=== PATIENT | male | born 1950 | race Caucasian/White ===

== ENCOUNTER 2018-07-15 18:19 | Inpatient (IN) | payer MEDICARE, MEDICAID, OTHER ==
[2018-07-15 18:40] LABS: ADD MAN DIFF? NO
[2018-07-15 18:43] LABS: BASOPHILS % 0.4 % (0.0-2.0); EOSINOPHILS # 0.3 10^3/ul (0.0-0.5); EOSINOPHILS % 3.5 % (0.0-7.0); HEMATOCRIT 45.4 % (42.0-52.0); HEMOGLOBIN 15.2 g/dl (14.0-18.0); LYMPHOCYTES # 3.5 10^3/ul (0.8-2.9); LYMPHOCYTES % 47.6 % (15.0-51.0); MEAN CORPUSCULAR HEMOGLOBIN 27.3 pg (29.0-33.0); MEAN CORPUSCULAR HGB CONC 33.5 g/dl (32.0-37.0); MEAN CORPUSCULAR VOLUME 81.7 fl (82.0-101.0); MEAN PLATELET VOLUME 10.3 fl (7.4-10.4); MONOCYTE # 0.5 10^3/ul (0.3-0.9); MONOCYTES % 6.2 % (0.0-11.0); NEUTROPHIL # 3.1 10^3/ul (1.6-7.5); PLATELET COUNT 299 10^3/UL (140-415); RED BLOOD COUNT 5.56 10^6/ul (4.70-6.10)
[2018-07-15 18:43] LABS: WHITE BLOOD COUNT 7.4 10^3/ul (4.8-10.8)
[2018-07-15 18:59] LABS: ALANINE AMINOTRANSFERASE 21 IU/L (13-69); ALBUMIN/GLOBULIN RATIO 1.17; ALKALINE PHOSPHATASE 125 IU/L (42-121); ANION GAP 11 (5-13); ASPARTATE AMINO TRANSFERASE 33 IU/L (15-46); BILIRUBIN,INDIRECT 0.7 mg/dl (0-1.1); BILIRUBIN,TOTAL 0.7 mg/dl (0.2-1.3); BLOOD UREA NITROGEN 15 mg/dl (7-20); CALCIUM 9.2 mg/dl (8.4-10.2); CARBON DIOXIDE 33 mmol/L (21-31); CHLORIDE 95 mmol/L (97-110); CREATININE 0.75 mg/dl (0.61-1.24); Estimated GFR > 60 mL/min (>60); GLUCOSE 122 mg/dl (70-220); LIPASE 39 U/L (23-300); SODIUM 139 mmol/L (135-144); TOTAL PROTEIN 7.4 g/dl (6.1-8.1)
[2018-07-15 19:07] LABS: POTASSIUM 2.7 mmol/L (3.5-5.1)
[2018-07-15 19:10] LABS: TROPONIN-I 0.023 ng/ml (0.000-0.120)
[2018-07-15] MEDS ORDERED: ONDANSETRON 4 MG INJ IV ×2 (20:30→23:00)
[2018-07-15] MEDS ORDERED: ACETAMINOPHEN 325 MG TAB PO (20:30)
[2018-07-15] MEDS: AZITHROMYCIN 500MG/NS (PMX) 250 ML IV (20:41)
[2018-07-15] MEDS ORDERED: NACL 0.9% 3 ML SYG IV (23:00)
[2018-07-15] MEDS ORDERED: ALBUTEROL/IPRATROPIUM (NEB) 3 ML AMP HHN (23:00)
[2018-07-15] MEDS ORDERED: ONDANSETRON 4 MG TAB PO (23:00)
[2018-07-15] MEDS: POTASSIUM BICARBONATE 25 MEQ TAB PEG (23:05)
[2018-07-15] MEDS: CEFTRIAXONE 1 GM/50 ML (PMX) 50 ML IVPB (23:05)
[2018-07-16] MEDS: ACETAMINOPHEN 325 MG TAB PO ×3 (00:24→17:46)
[2018-07-16] MEDS: LORAZEPAM 1 MG TAB PO ×2 (00:24→16:17)
[2018-07-16] MEDS: GUAIFENESIN/CODEINE 5ML CUP PO (04:57)
[2018-07-16] MEDS: PANTOPRAZOLE 40 MG INJ IV (05:31)
[2018-07-16 05:46] LABS: ADD MAN DIFF? NO
[2018-07-16 05:51] LABS: BASOPHILS % 0.4 % (0.0-2.0); EOSINOPHILS # 0.3 10^3/ul (0.0-0.5); EOSINOPHILS % 2.6 % (0.0-7.0); HEMATOCRIT 44.1 % (42.0-52.0); LYMPHOCYTES # 3.4 10^3/ul (0.8-2.9); MEAN CORPUSCULAR HEMOGLOBIN 27.4 pg (29.0-33.0); MEAN CORPUSCULAR VOLUME 80.6 fl (82.0-101.0); MEAN PLATELET VOLUME 10.4 fl (7.4-10.4); MONOCYTE # 0.6 10^3/ul (0.3-0.9); MONOCYTES % 5.8 % (0.0-11.0); NEUTROPHIL # 5.7 10^3/ul (1.6-7.5); NEUTROPHILS % 56.9 % (39.0-77.0); PLATELET COUNT 308 10^3/UL (140-415); RED BLOOD COUNT 5.47 10^6/ul (4.70-6.10); RED CELL DISTRIBUTION WIDTH 14.7 % (11.5-14.5)
[2018-07-16 05:51] LABS: WHITE BLOOD COUNT 10.1 10^3/ul (4.8-10.8)
[2018-07-16] MEDS ORDERED: PANTOPRAZOLE (EC) 40 MG TAB PO (06:00)
[2018-07-16 06:07] LABS: HEMOGLOBIN A1C 5.4 % (0-5.9)
[2018-07-16 06:07] LABS: ALANINE AMINOTRANSFERASE 24 IU/L (13-69); ALBUMIN/GLOBULIN RATIO 1.17; ALKALINE PHOSPHATASE 126 IU/L (42-121); ANION GAP 12 (5-13); ASPARTATE AMINO TRANSFERASE 32 IU/L (15-46); BILIRUBIN,INDIRECT 0.6 mg/dl (0-1.1); BILIRUBIN,TOTAL 0.6 mg/dl (0.2-1.3); BLOOD UREA NITROGEN 12 mg/dl (7-20); CALCIUM 9.4 mg/dl (8.4-10.2); CARBON DIOXIDE 32 mmol/L (21-31); CHLORIDE 96 mmol/L (97-110); CHOL/HDL RATIO 2.5 RATIO; CHOLESTEROL 100 mg/dl (100-200); CREATININE 0.65 mg/dl (0.61-1.24); Estimated GFR > 60 mL/min (>60); GLUCOSE 111 mg/dl (70-220); HDL CHOLESTEROL 40 mg/dl (30-78); LDL CHOLESTEROL,CALCULATED 46 mg/dl; MAGNESIUM 1.8 mg/dl (1.7-2.5); PHOSPHORUS 2.5 mg/dl (2.5-4.9); SODIUM 140 mmol/L (135-144); TOTAL PROTEIN 7.4 g/dl (6.1-8.1); TRIGLYCERIDES 69 mg/dl (0-149)
[2018-07-16 06:17] LABS: POTASSIUM 2.6 mmol/L (3.5-5.1)
[2018-07-16] MEDS: CLOPIDOGREL 75 MG TAB PO (08:57)
[2018-07-16] MEDS: DOCUSATE SODIUM 100 MG CAP PO (08:57)
[2018-07-16] MEDS: CEFTRIAXONE 1 GM/50 ML (PMX) 50 ML IVPB ×2 (08:57→21:26)
[2018-07-16] MEDS: ASPIRIN (EC) 81 MG TAB PO (08:57)
[2018-07-16] MEDS: SERTRALINE 50 MG TAB PO (08:57)
[2018-07-16] MEDS: AZITHROMYCIN 500MG/NS (PMX) 250 ML IVPB (09:46)
[2018-07-16] MEDS: POTASSIUM CHLORIDE 100 ML IVPB ×3 (11:04→16:02)
[2018-07-16 19:10] LABS: POTASSIUM 3.5 mmol/L (3.5-5.1)
[2018-07-16] MEDS ORDERED: VANCOMYCIN IV PER PHARMACY XX (21:00)
[2018-07-16] MEDS: ATORVASTATIN 40 MG TAB PO (21:25)
[2018-07-16 22:08] LABS: POTASSIUM 3.2 mmol/L (3.5-5.1)
[2018-07-16] MEDS: VANCOMYCIN HCL 1.5 GM in SOD CHLORIDE 0.9% 250 ML IVPB (23:18)
[2018-07-17] MEDS: ACETAMINOPHEN 325 MG TAB PO (02:02)
[2018-07-17] MEDS: PANTOPRAZOLE 40 MG INJ IV (05:24)
[2018-07-17 05:54] LABS: ADD MAN DIFF? NO
[2018-07-17 06:00] LABS: BASOPHILS % 0.5 % (0.0-2.0); EOSINOPHILS # 0.2 10^3/ul (0.0-0.5); EOSINOPHILS % 3.1 % (0.0-7.0); HEMATOCRIT 40.3 % (42.0-52.0); HEMOGLOBIN 13.8 g/dl (14.0-18.0); LYMPHOCYTES # 2.5 10^3/ul (0.8-2.9); LYMPHOCYTES % 40.1 % (15.0-51.0); MEAN CORPUSCULAR HEMOGLOBIN 27.7 pg (29.0-33.0); MEAN CORPUSCULAR HGB CONC 34.2 g/dl (32.0-37.0); MEAN CORPUSCULAR VOLUME 80.8 fl (82.0-101.0); MEAN PLATELET VOLUME 10.3 fl (7.4-10.4); MONOCYTE # 0.4 10^3/ul (0.3-0.9); MONOCYTES % 6.7 % (0.0-11.0); NEUTROPHILS % 49.3 % (39.0-77.0); PLATELET COUNT 270 10^3/UL (140-415); RED BLOOD COUNT 4.99 10^6/ul (4.70-6.10)
[2018-07-17 06:00] LABS: WHITE BLOOD COUNT 6.2 10^3/ul (4.8-10.8)
[2018-07-17 06:17] LABS: INR 0.98; PROTIME 13.1 Sec (11.9-14.9)
[2018-07-17 06:19] LABS: PHOSPHORUS 2.3 mg/dl (2.5-4.9)
[2018-07-17 06:19] LABS: MAGNESIUM 1.8 mg/dl (1.7-2.5)
[2018-07-17 06:24] LABS: ALANINE AMINOTRANSFERASE 30 IU/L (13-69); ALBUMIN 3.6 g/dl (3.3-4.9); ALBUMIN/GLOBULIN RATIO 1.16; ALKALINE PHOSPHATASE 107 IU/L (42-121); ANION GAP 11 (5-13); ASPARTATE AMINO TRANSFERASE 32 IU/L (15-46); BILIRUBIN,INDIRECT 0.6 mg/dl (0-1.1); BILIRUBIN,TOTAL 0.6 mg/dl (0.2-1.3); BLOOD UREA NITROGEN 8 mg/dl (7-20); CALCIUM 9.1 mg/dl (8.4-10.2); CARBON DIOXIDE 28 mmol/L (21-31); CHLORIDE 102 mmol/L (97-110); CREATININE 0.58 mg/dl (0.61-1.24); Estimated GFR > 60 mL/min (>60); GLUCOSE 94 mg/dl (70-220); SODIUM 141 mmol/L (135-144); TOTAL PROTEIN 6.7 g/dl (6.1-8.1)
[2018-07-17 06:29] LABS: POTASSIUM 2.9 mmol/L (3.5-5.1)
[2018-07-17 06:54] LABS: THYROID STIMULATING HORMONE 0.947 MIU/L (0.465-4.680)
[2018-07-17] MEDS: CEFTRIAXONE 1 GM/50 ML (PMX) 50 ML IVPB ×2 (09:25→21:30)
[2018-07-17] MEDS: POTASSIUM CHLORIDE 100 ML IVPB ×2 (09:25→10:56)
[2018-07-17] MEDS: CLOPIDOGREL 75 MG TAB PO (09:25)
[2018-07-17] MEDS: LACTOBACILLUS RHAMNOSUS CAP PO ×2 (09:25→21:30)
[2018-07-17] MEDS: DOCUSATE SODIUM 100 MG CAP PO (09:26)
[2018-07-17] MEDS: SERTRALINE 50 MG TAB PO (09:26)
[2018-07-17] MEDS: ASPIRIN (EC) 81 MG TAB PO (09:26)
[2018-07-17] MEDS: VANCOMYCIN 1 GM 250 ML IVPB ×2 (11:00→23:23)
[2018-07-17] MEDS: MUPIROCIN 2% 22 GM OINT TOP (21:30)
[2018-07-17] MEDS: ATORVASTATIN 40 MG TAB PO (21:30)
[2018-07-17] MEDS: LORAZEPAM 1 MG TAB PO (21:40)
[2018-07-18 05:52] LABS: ADD MAN DIFF? NO
[2018-07-18 05:56] LABS: BASOPHILS % 0.4 % (0.0-2.0); EOSINOPHILS # 0.2 10^3/ul (0.0-0.5); EOSINOPHILS % 2.5 % (0.0-7.0); HEMATOCRIT 41.8 % (42.0-52.0); HEMOGLOBIN 14.2 g/dl (14.0-18.0); LYMPHOCYTES # 3.4 10^3/ul (0.8-2.9); LYMPHOCYTES % 44.2 % (15.0-51.0); MEAN CORPUSCULAR HEMOGLOBIN 27.4 pg (29.0-33.0); MEAN CORPUSCULAR VOLUME 80.5 fl (82.0-101.0); MEAN PLATELET VOLUME 10.3 fl (7.4-10.4); MONOCYTE # 0.5 10^3/ul (0.3-0.9); MONOCYTES % 6.8 % (0.0-11.0); NEUTROPHIL # 3.5 10^3/ul (1.6-7.5); PLATELET COUNT 283 10^3/UL (140-415); RED BLOOD COUNT 5.19 10^6/ul (4.70-6.10); RED CELL DISTRIBUTION WIDTH 15.3 % (11.5-14.5)
[2018-07-18 05:56] LABS: WHITE BLOOD COUNT 7.6 10^3/ul (4.8-10.8)
[2018-07-18 06:27] LABS: MAGNESIUM 1.7 mg/dl (1.7-2.5)
[2018-07-18 06:27] LABS: PHOSPHORUS 2.5 mg/dl (2.5-4.9)
[2018-07-18 06:44] LABS: ANION GAP 10 (5-13); BLOOD UREA NITROGEN 10 mg/dl (7-20); CALCIUM 9.2 mg/dl (8.4-10.2); CARBON DIOXIDE 25 mmol/L (21-31); CHLORIDE 105 mmol/L (97-110); CREATININE 0.52 mg/dl (0.61-1.24); Estimated GFR > 60 mL/min (>60); GLUCOSE 89 mg/dl (70-220); POTASSIUM 3.2 mmol/L (3.5-5.1); SODIUM 140 mmol/L (135-144)
[2018-07-18] MEDS: LANSOPRAZOLE 30 MG CAP PO (06:49)
[2018-07-18] MEDS: CEFTRIAXONE 1 GM/50 ML (PMX) 50 ML IVPB ×2 (08:21→20:52)
[2018-07-18] MEDS: SERTRALINE 50 MG TAB PO (08:21)
[2018-07-18] MEDS: CLOPIDOGREL 75 MG TAB PO (08:21)
[2018-07-18] MEDS: LACTOBACILLUS RHAMNOSUS CAP PO ×2 (08:21→20:53)
[2018-07-18] MEDS: DOCUSATE SODIUM 100 MG CAP PO (08:21)
[2018-07-18] MEDS: ASPIRIN (EC) 81 MG TAB PO (08:21)
[2018-07-18] MEDS: MUPIROCIN 2% 22 GM OINT TOP ×2 (08:22→20:53)
[2018-07-18 11:22] LABS: VANCOMYCIN,TROUGH 6.6 ug/ml (10.0-20.0)
[2018-07-18] MEDS: VANCOMYCIN 1 GM 250 ML IVPB (11:42)
[2018-07-18] MEDS: ACETAMINOPHEN 325 MG TAB PO ×2 (15:22→20:52)
[2018-07-18] MEDS: LORAZEPAM 1 MG TAB PO ×2 (15:25→20:53)
[2018-07-18] MEDS: POTASSIUM CHLORIDE 20 MEQ POWDER FOR ORAL SOLN GTB (17:13)
[2018-07-18] MEDS: 1/2 NS + KCL 20 MEQ 1,000 ML IV (17:13)
[2018-07-18] MEDS: ATORVASTATIN 40 MG TAB PO (20:53)
[2018-07-18] MEDS: VANCOMYCIN HCL 1.5 GM in SOD CHLORIDE 0.9% 250 ML IVPB (21:57)
[2018-07-19 05:40] LABS: ADD MAN DIFF? NO
[2018-07-19] MEDS: LANSOPRAZOLE 30 MG CAP PO (05:50)
[2018-07-19 05:53] LABS: WHITE BLOOD COUNT 7.7 10^3/ul (4.8-10.8)
[2018-07-19 05:53] LABS: BASOPHILS % 0.4 % (0.0-2.0); EOSINOPHILS # 0.1 10^3/ul (0.0-0.5); EOSINOPHILS % 1.8 % (0.0-7.0); LYMPHOCYTES # 2.6 10^3/ul (0.8-2.9); LYMPHOCYTES % 33.9 % (15.0-51.0); MEAN CORPUSCULAR HEMOGLOBIN 27.5 pg (29.0-33.0); MEAN CORPUSCULAR HGB CONC 34.1 g/dl (32.0-37.0); MEAN CORPUSCULAR VOLUME 80.6 fl (82.0-101.0); MEAN PLATELET VOLUME 10.1 fl (7.4-10.4); MONOCYTE # 0.6 10^3/ul (0.3-0.9); MONOCYTES % 7.1 % (0.0-11.0); NEUTROPHIL # 4.4 10^3/ul (1.6-7.5); NEUTROPHILS % 56.5 % (39.0-77.0); PLATELET COUNT 280 10^3/UL (140-415); RED BLOOD COUNT 5.09 10^6/ul (4.70-6.10); RED CELL DISTRIBUTION WIDTH 15.1 % (11.5-14.5)
[2018-07-19 06:02] LABS: MAGNESIUM 1.6 mg/dl (1.7-2.5)
[2018-07-19 06:02] LABS: PHOSPHORUS 2.2 mg/dl (2.5-4.9)
[2018-07-19 06:05] LABS: ANION GAP 9 (5-13); BLOOD UREA NITROGEN 5 mg/dl (7-20); CALCIUM 9.4 mg/dl (8.4-10.2); CARBON DIOXIDE 23 mmol/L (21-31); CHLORIDE 108 mmol/L (97-110); CREATININE 0.52 mg/dl (0.61-1.24); Estimated GFR > 60 mL/min (>60); GLUCOSE 89 mg/dl (70-220); POTASSIUM 3.7 mmol/L (3.5-5.1); SODIUM 140 mmol/L (135-144)
[2018-07-19] MEDS: ASPIRIN (EC) 81 MG TAB PO ×2 (09:00→09:44)
[2018-07-19] MEDS: LACTOBACILLUS RHAMNOSUS CAP PO ×2 (09:00→09:44)
[2018-07-19] MEDS: DOCUSATE SODIUM 100 MG CAP PO ×2 (09:00→09:43)
[2018-07-19] MEDS: 1/2 NS + KCL 20 MEQ 1,000 ML IV ×2 (09:10→18:15)
[2018-07-19] MEDS: CEFTRIAXONE 1 GM/50 ML (PMX) 50 ML IVPB ×2 (09:41→21:20)
[2018-07-19] MEDS: SERTRALINE 50 MG TAB PO (09:44)
[2018-07-19] MEDS: CLOPIDOGREL 75 MG TAB PO (09:44)
[2018-07-19] MEDS: MUPIROCIN 2% 22 GM OINT TOP ×3 (09:45→23:29)
[2018-07-19] MEDS: VANCOMYCIN HCL 1.5 GM in SOD CHLORIDE 0.9% 250 ML IVPB (11:10)
[2018-07-19 12:51] LABS: OCCULT BLOOD STOOL NEGATIVE (NEGATIVE)
[2018-07-19] MEDS: ASPIRIN 81 MG TAB GTB (14:01)
[2018-07-19] MEDS: ACETAMINOPHEN 325 MG TAB GTB (16:03)
[2018-07-19] MEDS ORDERED: DOXYCYCLINE 100 MG TAB PO (21:00)
[2018-07-19] MEDS: ATORVASTATIN 40 MG TAB GTB (21:20)
[2018-07-19] MEDS: DOXYCYCLINE 100 MG TAB GTB (21:20)
[2018-07-19] MEDS: LACTOBACILLUS RHAMNOSUS CAP GTB (21:20)
[2018-07-20] MEDS: 1/2 NS + KCL 20 MEQ 1,000 ML IV ×2 (01:47→16:30)
[2018-07-20] MEDS: LANSOPRAZOLE 30 MG CAP PO (05:04)
[2018-07-20 06:27] LABS: ADD MAN DIFF? NO
[2018-07-20 06:36] LABS: BASOPHILS % 0.5 % (0.0-2.0); EOSINOPHILS # 0.2 10^3/ul (0.0-0.5); EOSINOPHILS % 2.4 % (0.0-7.0); HEMATOCRIT 41.1 % (42.0-52.0); HEMOGLOBIN 14.2 g/dl (14.0-18.0); LYMPHOCYTES # 3.6 10^3/ul (0.8-2.9); LYMPHOCYTES % 45.3 % (15.0-51.0); MEAN CORPUSCULAR HEMOGLOBIN 27.7 pg (29.0-33.0); MEAN CORPUSCULAR HGB CONC 34.5 g/dl (32.0-37.0); MEAN CORPUSCULAR VOLUME 80.3 fl (82.0-101.0); MONOCYTE # 0.6 10^3/ul (0.3-0.9); MONOCYTES % 7.3 % (0.0-11.0); NEUTROPHIL # 3.6 10^3/ul (1.6-7.5); NEUTROPHILS % 44.3 % (39.0-77.0); PLATELET COUNT 272 10^3/UL (140-415); RED BLOOD COUNT 5.12 10^6/ul (4.70-6.10); RED CELL DISTRIBUTION WIDTH 15.2 % (11.5-14.5)
[2018-07-20 07:06] LABS: ANION GAP 8 (5-13); BLOOD UREA NITROGEN 4 mg/dl (7-20); CALCIUM 9.7 mg/dl (8.4-10.2); CARBON DIOXIDE 22 mmol/L (21-31); CHLORIDE 107 mmol/L (97-110); Estimated GFR > 60 mL/min (>60); GLUCOSE 94 mg/dl (70-220); MAGNESIUM 1.7 mg/dl (1.7-2.5); POTASSIUM 3.5 mmol/L (3.5-5.1); SODIUM 137 mmol/L (135-144)
[2018-07-20] MEDS: ASPIRIN 81 MG TAB GTB (09:56)
[2018-07-20] MEDS: DOXYCYCLINE 100 MG TAB GTB ×2 (09:56→21:30)
[2018-07-20] MEDS: CEFTRIAXONE 1 GM/50 ML (PMX) 50 ML IVPB ×2 (09:56→21:30)
[2018-07-20] MEDS: LACTOBACILLUS RHAMNOSUS CAP GTB ×2 (09:56→21:30)
[2018-07-20] MEDS: MUPIROCIN 2% 22 GM OINT TOP ×2 (09:56→21:30)
[2018-07-20] MEDS: SERTRALINE 50 MG TAB GTB (09:57)
[2018-07-20] MEDS: CLOPIDOGREL 75 MG TAB GTB (09:57)
[2018-07-20] MEDS: LISINOPRIL 5 MG TAB GTB (11:35)
[2018-07-20] MEDS: ATORVASTATIN 40 MG TAB GTB (21:30)
[2018-07-20] MEDS: LORAZEPAM 2 MG INJ IV (22:01)
[2018-07-21] MEDS: hydrALAzine 20 MG INJ IV (02:42)
[2018-07-21] MEDS: LANSOPRAZOLE 30 MG CAP PO (05:53)
[2018-07-21] MEDS: ACETAMINOPHEN 325 MG TAB GTB ×2 (06:06→23:03)
[2018-07-21 06:29] LABS: ADD MAN DIFF? NO
[2018-07-21 06:32] LABS: BASOPHILS % 0.3 % (0.0-2.0); EOSINOPHILS # 0.2 10^3/ul (0.0-0.5); EOSINOPHILS % 1.7 % (0.0-7.0); HEMOGLOBIN 14.5 g/dl (14.0-18.0); LYMPHOCYTES # 3.3 10^3/ul (0.8-2.9); LYMPHOCYTES % 38.3 % (15.0-51.0); MEAN CORPUSCULAR HEMOGLOBIN 27.8 pg (29.0-33.0); MEAN CORPUSCULAR HGB CONC 34.5 g/dl (32.0-37.0); MEAN CORPUSCULAR VOLUME 80.6 fl (82.0-101.0); MEAN PLATELET VOLUME 10.2 fl (7.4-10.4); MONOCYTE # 0.6 10^3/ul (0.3-0.9); MONOCYTES % 6.8 % (0.0-11.0); NEUTROPHIL # 4.5 10^3/ul (1.6-7.5); NEUTROPHILS % 52.7 % (39.0-77.0); PLATELET COUNT 286 10^3/UL (140-415); RED BLOOD COUNT 5.21 10^6/ul (4.70-6.10); RED CELL DISTRIBUTION WIDTH 15.5 % (11.5-14.5)
[2018-07-21 06:32] LABS: WHITE BLOOD COUNT 8.6 10^3/ul (4.8-10.8)
[2018-07-21 06:47] LABS: PHOSPHORUS 2.3 mg/dl (2.5-4.9)
[2018-07-21 06:47] LABS: MAGNESIUM 1.6 mg/dl (1.7-2.5)
[2018-07-21 07:02] LABS: ANION GAP 15 (5-13); BLOOD UREA NITROGEN 6 mg/dl (7-20); CALCIUM 9.6 mg/dl (8.4-10.2); CARBON DIOXIDE 21 mmol/L (21-31); CHLORIDE 105 mmol/L (97-110); CREATININE 0.51 mg/dl (0.61-1.24); Estimated GFR > 60 mL/min (>60); GLUCOSE 103 mg/dl (70-220); POTASSIUM 3.3 mmol/L (3.5-5.1); SODIUM 141 mmol/L (135-144)
[2018-07-21] MEDS: DOXYCYCLINE 100 MG TAB GTB ×2 (09:13→21:10)
[2018-07-21] MEDS: CEFTRIAXONE 1 GM/50 ML (PMX) 50 ML IVPB ×2 (09:13→21:10)
[2018-07-21] MEDS: ASPIRIN 81 MG TAB GTB (09:14)
[2018-07-21] MEDS: MUPIROCIN 2% 22 GM OINT TOP ×2 (09:14→21:11)
[2018-07-21] MEDS: LISINOPRIL 5 MG TAB GTB (09:14)
[2018-07-21] MEDS: LACTOBACILLUS RHAMNOSUS CAP GTB ×2 (09:15→21:10)
[2018-07-21] MEDS: CLOPIDOGREL 75 MG TAB GTB (09:15)
[2018-07-21] MEDS: SERTRALINE 50 MG TAB GTB (09:15)
[2018-07-21] MEDS: 1/2 NS + KCL 20 MEQ 1,000 ML IV (10:47)
[2018-07-21] MEDS: MAGNESIUM SULFATE 2 GM/50 ML 50 ML IVPB (11:30)
[2018-07-21] MEDS: POTASSIUM PHOSPHATE 15 MM in SOD CHLORIDE 0.9% 250 ML IVPB (12:37)
[2018-07-21] MEDS: LORAZEPAM 2 MG INJ IV ×2 (17:59→23:23)
[2018-07-21] MEDS: ATORVASTATIN 40 MG TAB GTB (21:10)
[2018-07-22] MEDS: HALOPERIDOL 5 MG INJ IM (01:43)
[2018-07-22 06:18] LABS: ADD MAN DIFF? NO
[2018-07-22 06:20] LABS: WHITE BLOOD COUNT 7.8 10^3/ul (4.8-10.8)
[2018-07-22 06:20] LABS: BASOPHILS % 0.4 % (0.0-2.0); EOSINOPHILS # 0.2 10^3/ul (0.0-0.5); EOSINOPHILS % 2.7 % (0.0-7.0); HEMATOCRIT 41.5 % (42.0-52.0); HEMOGLOBIN 13.8 g/dl (14.0-18.0); LYMPHOCYTES # 2.6 10^3/ul (0.8-2.9); LYMPHOCYTES % 32.9 % (15.0-51.0); MEAN CORPUSCULAR HEMOGLOBIN 27.2 pg (29.0-33.0); MEAN CORPUSCULAR HGB CONC 33.3 g/dl (32.0-37.0); MEAN CORPUSCULAR VOLUME 81.9 fl (82.0-101.0); MEAN PLATELET VOLUME 10.1 fl (7.4-10.4); MONOCYTE # 0.6 10^3/ul (0.3-0.9); MONOCYTES % 7.3 % (0.0-11.0); NEUTROPHIL # 4.4 10^3/ul (1.6-7.5); NEUTROPHILS % 56.4 % (39.0-77.0); PLATELET COUNT 270 10^3/UL (140-415); RED BLOOD COUNT 5.07 10^6/ul (4.70-6.10); RED CELL DISTRIBUTION WIDTH 16.2 % (11.5-14.5)
[2018-07-22] MEDS: 1/2 NS + KCL 20 MEQ 1,000 ML IV ×2 (06:32→23:31)
[2018-07-22] MEDS: LANSOPRAZOLE 30 MG CAP PO (06:32)
[2018-07-22 06:41] LABS: PHOSPHORUS 3.2 mg/dl (2.5-4.9)
[2018-07-22 06:41] LABS: MAGNESIUM 2.1 mg/dl (1.7-2.5)
[2018-07-22 06:48] LABS: ANION GAP 8 (5-13); BLOOD UREA NITROGEN 7 mg/dl (7-20); CALCIUM 9.6 mg/dl (8.4-10.2); CARBON DIOXIDE 25 mmol/L (21-31); CHLORIDE 110 mmol/L (97-110); CREATININE 0.54 mg/dl (0.61-1.24); Estimated GFR > 60 mL/min (>60); GLUCOSE 102 mg/dl (70-220); POTASSIUM 3.9 mmol/L (3.5-5.1); SODIUM 143 mmol/L (135-144)
[2018-07-22] MEDS: ASPIRIN 81 MG TAB GTB (09:53)
[2018-07-22] MEDS: CEFTRIAXONE 1 GM/50 ML (PMX) 50 ML IVPB ×2 (09:53→21:20)
[2018-07-22] MEDS: MUPIROCIN 2% 22 GM OINT TOP ×2 (09:53→21:22)
[2018-07-22] MEDS: CLOPIDOGREL 75 MG TAB GTB (09:53)
[2018-07-22] MEDS: DOXYCYCLINE 100 MG TAB GTB ×2 (09:54→21:19)
[2018-07-22] MEDS: LACTOBACILLUS RHAMNOSUS CAP GTB ×2 (09:54→21:20)
[2018-07-22] MEDS: LISINOPRIL 5 MG TAB GTB (09:54)
[2018-07-22] MEDS: SERTRALINE 50 MG TAB GTB (09:54)
[2018-07-22] MEDS: hydrALAzine 20 MG INJ IV (14:34)
[2018-07-22] MEDS: ACETAMINOPHEN 325 MG TAB GTB (19:38)
[2018-07-22] MEDS: ATORVASTATIN 40 MG TAB GTB (21:19)
[2018-07-22] MEDS: LORAZEPAM 2 MG INJ IV (23:17)
[2018-07-23] MEDS: HYDROCODONE/APAP (5/325) TAB GTB ×3 (01:02→16:38)
[2018-07-23] MEDS: hydrALAzine 20 MG INJ IV ×2 (01:32→22:09)
[2018-07-23] MEDS: LANSOPRAZOLE 30 MG CAP PO (05:06)
[2018-07-23] MEDS: CEFTRIAXONE 1 GM/50 ML (PMX) 50 ML IVPB (08:07)
[2018-07-23] MEDS: DOXYCYCLINE 100 MG TAB GTB ×2 (08:11→21:41)
[2018-07-23] MEDS: LISINOPRIL 5 MG TAB GTB (08:11)
[2018-07-23] MEDS: LACTOBACILLUS RHAMNOSUS CAP GTB ×2 (08:11→21:41)
[2018-07-23] MEDS: SERTRALINE 50 MG TAB GTB (08:11)
[2018-07-23] MEDS: CLOPIDOGREL 75 MG TAB GTB (08:11)
[2018-07-23] MEDS: MUPIROCIN 2% 22 GM OINT TOP ×2 (08:12→21:42)
[2018-07-23] MEDS: ASPIRIN 81 MG TAB GTB (08:15)
[2018-07-23] MEDS: 1/2 NS + KCL 20 MEQ 1,000 ML IV (14:25)
[2018-07-23] MEDS: ATORVASTATIN 40 MG TAB GTB (21:41)
[2018-07-24] MEDS: 1/2 NS + KCL 20 MEQ 1,000 ML IV ×2 (05:55→22:11)
[2018-07-24] MEDS: LANSOPRAZOLE 30 MG CAP PO (05:55)
[2018-07-24 06:04] LABS: ADD MAN DIFF? NO
[2018-07-24 06:07] LABS: BASOPHILS % 0.3 % (0.0-2.0); EOSINOPHILS # 0.2 10^3/ul (0.0-0.5); EOSINOPHILS % 3.1 % (0.0-7.0); HEMATOCRIT 40.4 % (42.0-52.0); HEMOGLOBIN 13.8 g/dl (14.0-18.0); LYMPHOCYTES # 2.5 10^3/ul (0.8-2.9); LYMPHOCYTES % 32.4 % (15.0-51.0); MEAN CORPUSCULAR HEMOGLOBIN 27.7 pg (29.0-33.0); MEAN CORPUSCULAR HGB CONC 34.2 g/dl (32.0-37.0); MEAN CORPUSCULAR VOLUME 81.1 fl (82.0-101.0); MEAN PLATELET VOLUME 10.1 fl (7.4-10.4); MONOCYTE # 0.5 10^3/ul (0.3-0.9); MONOCYTES % 6.1 % (0.0-11.0); NEUTROPHIL # 4.5 10^3/ul (1.6-7.5); NEUTROPHILS % 57.8 % (39.0-77.0); PLATELET COUNT 284 10^3/UL (140-415); RED BLOOD COUNT 4.98 10^6/ul (4.70-6.10); RED CELL DISTRIBUTION WIDTH 16.7 % (11.5-14.5)
[2018-07-24 06:07] LABS: WHITE BLOOD COUNT 7.8 10^3/ul (4.8-10.8)
[2018-07-24 06:33] LABS: PHOSPHORUS 3.5 mg/dl (2.5-4.9)
[2018-07-24 06:33] LABS: MAGNESIUM 1.9 mg/dl (1.7-2.5)
[2018-07-24 06:40] LABS: ANION GAP 9 (5-13); BLOOD UREA NITROGEN 7 mg/dl (7-20); CALCIUM 10.1 mg/dl (8.4-10.2); CARBON DIOXIDE 24 mmol/L (21-31); CHLORIDE 107 mmol/L (97-110); CREATININE 0.46 mg/dl (0.61-1.24); Estimated GFR > 60 mL/min (>60); GLUCOSE 101 mg/dl (70-220); SODIUM 140 mmol/L (135-144)
[2018-07-24] MEDS: CLOPIDOGREL 75 MG TAB GTB (09:54)
[2018-07-24] MEDS: LISINOPRIL 5 MG TAB GTB (09:55)
[2018-07-24] MEDS: DOXYCYCLINE 100 MG TAB GTB ×2 (09:55→20:37)
[2018-07-24] MEDS: LACTOBACILLUS RHAMNOSUS CAP GTB ×2 (09:55→20:37)
[2018-07-24] MEDS: ASPIRIN 81 MG TAB GTB (09:55)
[2018-07-24] MEDS: SERTRALINE 50 MG TAB GTB (09:56)
[2018-07-24] MEDS: MUPIROCIN 2% 22 GM OINT TOP ×2 (09:57→20:38)
[2018-07-24] MEDS: ATORVASTATIN 40 MG TAB GTB (20:37)
[2018-07-24] MEDS: LORAZEPAM 2 MG INJ IV (20:39)
[2018-07-24] MEDS: hydrALAzine 20 MG INJ IV (22:49)
[2018-07-24] MEDS: HYDROCODONE/APAP (5/325) TAB GTB (23:41)
[2018-07-25] MEDS: LANSOPRAZOLE 30 MG CAP PO (05:46)
[2018-07-25] MEDS: LISINOPRIL 5 MG TAB GTB (08:49)
[2018-07-25] MEDS: CLOPIDOGREL 75 MG TAB GTB (08:49)
[2018-07-25] MEDS: LACTOBACILLUS RHAMNOSUS CAP GTB (08:50)
[2018-07-25] MEDS: ASPIRIN 81 MG TAB GTB (08:50)
[2018-07-25] MEDS: SERTRALINE 50 MG TAB GTB (08:51)
[2018-07-25] MEDS: MUPIROCIN 2% 22 GM OINT TOP ×2 (08:51→20:28)
[2018-07-25] MEDS: hydrALAzine 20 MG INJ IV (15:00)
[2018-07-25] MEDS: ATORVASTATIN 40 MG TAB GTB (20:28)
[2018-07-26] MEDS: LORAZEPAM 2 MG INJ IV ×2 (01:14→22:00)
[2018-07-26] MEDS: hydrALAzine 20 MG INJ IV (02:46)
[2018-07-26] MEDS: LANSOPRAZOLE 30 MG CAP PO (05:40)
[2018-07-26] MEDS: ASPIRIN 81 MG TAB GTB (09:27)
[2018-07-26] MEDS: SERTRALINE 50 MG TAB GTB (09:27)
[2018-07-26] MEDS: CLOPIDOGREL 75 MG TAB GTB (09:27)
[2018-07-26] MEDS: LISINOPRIL 5 MG TAB GTB (09:28)
[2018-07-26] MEDS: MUPIROCIN 2% 22 GM OINT TOP ×2 (09:29→22:01)
[2018-07-26] MEDS: HYDROCODONE/APAP (5/325) TAB GTB (15:38)
[2018-07-26] MEDS: ATORVASTATIN 40 MG TAB GTB (22:01)
[2018-07-27] MEDS: LANSOPRAZOLE 30 MG CAP PO (06:23)
[2018-07-27] MEDS: BARIUM SULFATE 135 ML (E-Z HD) PO (09:00)
[2018-07-27] MEDS: CLOPIDOGREL 75 MG TAB GTB (09:01)
[2018-07-27] MEDS: SERTRALINE 50 MG TAB GTB (09:01)
[2018-07-27] MEDS: MUPIROCIN 2% 22 GM OINT TOP ×2 (09:01→20:10)
[2018-07-27] MEDS: ASPIRIN 81 MG TAB GTB (09:01)
[2018-07-27] MEDS: LISINOPRIL 5 MG TAB GTB (09:02)
[2018-07-27] MEDS: ATORVASTATIN 40 MG TAB GTB (20:02)
[2018-07-27] MEDS: HYDROCODONE/APAP (5/325) TAB GTB (20:02)
[2018-07-28] MEDS: LORAZEPAM 2 MG INJ IV (00:32)
[2018-07-28] MEDS: HYDROCODONE/APAP (5/325) TAB GTB ×3 (02:57→18:47)
[2018-07-28] MEDS: LANSOPRAZOLE 30 MG CAP PO (05:26)
[2018-07-28] MEDS: CLOPIDOGREL 75 MG TAB GTB (09:01)
[2018-07-28] MEDS: ASPIRIN 81 MG TAB GTB (09:01)
[2018-07-28] MEDS: SERTRALINE 50 MG TAB GTB (09:02)
[2018-07-28] MEDS: LISINOPRIL 5 MG TAB GTB (09:03)
[2018-07-28] MEDS: MUPIROCIN 2% 22 GM OINT TOP (09:05)
[2018-07-28] MEDS: ACETAMINOPHEN 325 MG TAB GTB (21:00)
[2018-07-29] MEDS: MUPIROCIN 2% 22 GM OINT TOP ×3 (00:04→21:47)
[2018-07-29] MEDS: LORAZEPAM 2 MG INJ IV ×2 (00:05→22:59)
[2018-07-29] MEDS: ATORVASTATIN 40 MG TAB GTB ×2 (00:06→21:45)
[2018-07-29] MEDS: HYDROCODONE/APAP (5/325) TAB GTB ×4 (02:08→21:47)
[2018-07-29] MEDS: LANSOPRAZOLE 30 MG CAP PO (05:29)
[2018-07-29] MEDS: CLOPIDOGREL 75 MG TAB GTB (09:15)
[2018-07-29] MEDS: SERTRALINE 50 MG TAB GTB (09:16)
[2018-07-29] MEDS: LISINOPRIL 5 MG TAB GTB (09:16)
[2018-07-29] MEDS: ASPIRIN 81 MG TAB GTB (09:21)
[2018-07-29] MEDS: DIPHENHYDRAMINE 50 MG INJ IV (23:30)
[2018-07-29] MEDS: HALOPERIDOL 5 MG INJ IM (23:51)
[2018-07-30] MEDS: LORAZEPAM 2 MG INJ IV (01:44)
[2018-07-30] MEDS: LANSOPRAZOLE 30 MG CAP PO (05:32)
[2018-07-30 10:38] LABS: IRON 42 ug/dl (35-150)
[2018-07-30 10:58] LABS: % IRON SATURATION 14 % SAT (22-52); TOTAL IRON BINDING CAPACITY 296 ug/dl (241-421)
[2018-07-30] MEDS: ASPIRIN 81 MG TAB GTB (11:00)
[2018-07-30] MEDS: CLOPIDOGREL 75 MG TAB GTB (11:00)
[2018-07-30] MEDS: SERTRALINE 50 MG TAB GTB (11:01)
[2018-07-30] MEDS: LISINOPRIL 5 MG TAB GTB (11:01)
[2018-07-30] MEDS: MUPIROCIN 2% 22 GM OINT TOP (11:02)
[2018-07-30 12:41] LABS: FERRITIN 73.9 ng/ml (11.1-264.0)
[2018-07-30] MEDS: HYDROCODONE/APAP (5/325) TAB GTB ×2 (16:49→20:36)
[2018-07-30] MEDS: ATORVASTATIN 40 MG TAB GTB (20:35)
[2018-07-31] MEDS: MUPIROCIN 2% 22 GM OINT TOP ×3 (00:40→21:45)
[2018-07-31] MEDS: LORAZEPAM 2 MG INJ IV ×2 (00:40→21:43)
[2018-07-31] MEDS: LANSOPRAZOLE 30 MG CAP PO (06:00)
[2018-07-31] MEDS: LISINOPRIL 5 MG TAB GTB ×2 (08:52→11:21)
[2018-07-31] MEDS: ASPIRIN 81 MG TAB GTB (08:52)
[2018-07-31] MEDS: CLOPIDOGREL 75 MG TAB GTB (08:52)
[2018-07-31] MEDS: SERTRALINE 50 MG TAB GTB (08:52)
[2018-07-31] MEDS: HYDROCODONE/APAP (5/325) TAB GTB ×2 (11:21→16:59)
[2018-07-31] MEDS: POLYETHYLENE GLYCOL 17 GM PACKET GTB (21:43)
[2018-07-31] MEDS: ATORVASTATIN 40 MG TAB GTB (21:43)
[2018-07-31] MEDS: DOCUSATE SODIUM 10 MG/ML (10ML CUP) GTB (21:43)
[2018-08-01] MEDS: SOD CHLORIDE 0.9% 1,000 ML IV ×3 (01:22→17:43)
[2018-08-01] MEDS: LORAZEPAM 2 MG INJ IV ×3 (01:22→18:07)
[2018-08-01] MEDS ORDERED: hydrALAzine 20 MG INJ (02:48)
[2018-08-01] MEDS: hydrALAzine 20 MG INJ IV (02:50)
[2018-08-01] MEDS: LANSOPRAZOLE 30 MG CAP PO (03:57)
[2018-08-01] MEDS: KETOROLAC 30 MG INJ IV (03:58)
[2018-08-01] MEDS ORDERED: HALOPERIDOL 5 MG INJ (04:32)
[2018-08-01] MEDS: HALOPERIDOL 5 MG INJ IM (04:44)
[2018-08-01] MEDS ORDERED: ENALAPRILAT 1.25 MG INJ (06:15)
[2018-08-01] MEDS ORDERED: ENALAPRILAT 1.25 MG INJ IV (06:30)
[2018-08-01 07:15] LABS: ADD MAN DIFF? NO
[2018-08-01 07:25] LABS: BASOPHILS % 0.3 % (0.0-2.0); EOSINOPHILS # 0.2 10^3/ul (0.0-0.5); HEMATOCRIT 42.8 % (42.0-52.0); HEMOGLOBIN 14.4 g/dl (14.0-18.0); LYMPHOCYTES # 2.7 10^3/ul (0.8-2.9); LYMPHOCYTES % 33.8 % (15.0-51.0); MEAN CORPUSCULAR HEMOGLOBIN 27.9 pg (29.0-33.0); MEAN CORPUSCULAR HGB CONC 33.6 g/dl (32.0-37.0); MEAN CORPUSCULAR VOLUME 82.8 fl (82.0-101.0); MEAN PLATELET VOLUME 10.3 fl (7.4-10.4); MONOCYTE # 0.6 10^3/ul (0.3-0.9); MONOCYTES % 7.4 % (0.0-11.0); NEUTROPHIL # 4.5 10^3/ul (1.6-7.5); NEUTROPHILS % 56.1 % (39.0-77.0); PLATELET COUNT 312 10^3/UL (140-415); RED BLOOD COUNT 5.17 10^6/ul (4.70-6.10); RED CELL DISTRIBUTION WIDTH 16.5 % (11.5-14.5)
[2018-08-01 07:44] LABS: ANION GAP 9 (5-13); BLOOD UREA NITROGEN 10 mg/dl (7-20); CALCIUM 9.7 mg/dl (8.4-10.2); CARBON DIOXIDE 24 mmol/L (21-31); CHLORIDE 108 mmol/L (97-110); CREATININE 0.46 mg/dl (0.61-1.24); Estimated GFR > 60 mL/min (>60); GLUCOSE 88 mg/dl (70-220); POTASSIUM 3.9 mmol/L (3.5-5.1); SODIUM 141 mmol/L (135-144)
[2018-08-01] MEDS: POLYETHYLENE GLYCOL 17 GM PACKET GTB (08:01)
[2018-08-01] MEDS: ASPIRIN 81 MG TAB GTB (08:01)
[2018-08-01] MEDS: DOCUSATE SODIUM 10 MG/ML (10ML CUP) GTB (08:01)
[2018-08-01] MEDS: SERTRALINE 50 MG TAB GTB (08:02)
[2018-08-01] MEDS: LISINOPRIL 5 MG TAB GTB (08:02)
[2018-08-01] MEDS: CLOPIDOGREL 75 MG TAB GTB (08:02)
[2018-08-01] MEDS: MUPIROCIN 2% 22 GM OINT TOP (08:50)
[2018-08-01] MEDS: ENALAPRILAT 1.25 MG INJ IV ×2 (11:48→17:44)
[2018-08-01] MEDS: IOHEXOL 300MG/ML 30 ML BTL (17:21)
[2018-08-02] MEDS: MUPIROCIN 2% 22 GM OINT TOP ×3 (01:00→21:14)
[2018-08-02] MEDS: LORAZEPAM 2 MG INJ IV ×2 (01:02→04:52)
[2018-08-02] MEDS: ENALAPRILAT 1.25 MG INJ IV ×2 (01:10→04:52)
[2018-08-02] MEDS: hydrALAzine 20 MG INJ IV (02:57)
[2018-08-02] MEDS: HALOPERIDOL 5 MG INJ IM (04:52)
[2018-08-02] MEDS: LANSOPRAZOLE 30 MG CAP PO (05:00)
[2018-08-02] MEDS: POLYETHYLENE GLYCOL 17 GM PACKET GTB (09:11)
[2018-08-02] MEDS: ASPIRIN 81 MG TAB GTB (09:12)
[2018-08-02] MEDS: LISINOPRIL 5 MG TAB GTB (09:12)
[2018-08-02] MEDS: CLOPIDOGREL 75 MG TAB GTB (09:12)
[2018-08-02] MEDS: SERTRALINE 50 MG TAB GTB (09:12)
[2018-08-02] MEDS: DOCUSATE SODIUM 10 MG/ML (10ML CUP) GTB ×2 (09:13→21:13)
[2018-08-02] MEDS: HYDROCODONE/APAP (5/325) TAB GTB ×3 (09:57→22:51)
[2018-08-02] MEDS: ATORVASTATIN 40 MG TAB GTB (21:10)
[2018-08-03] MEDS: hydrALAzine 20 MG INJ IV (02:29)
[2018-08-03] MEDS: LANSOPRAZOLE 30 MG CAP PO (06:01)
[2018-08-03 06:39] LABS: ANION GAP 9 (5-13); BLOOD UREA NITROGEN 16 mg/dl (7-20); CALCIUM 9.9 mg/dl (8.4-10.2); CARBON DIOXIDE 25 mmol/L (21-31); CHLORIDE 110 mmol/L (97-110); CREATININE 0.59 mg/dl (0.61-1.24); Estimated GFR > 60 mL/min (>60); GLUCOSE 106 mg/dl (70-220); MAGNESIUM 2.2 mg/dl (1.7-2.5); POTASSIUM 3.6 mmol/L (3.5-5.1); SODIUM 144 mmol/L (135-144)
[2018-08-03] MEDS: POLYETHYLENE GLYCOL 17 GM PACKET GTB (09:08)
[2018-08-03] MEDS: ASPIRIN 81 MG TAB GTB (09:08)
[2018-08-03] MEDS: CLOPIDOGREL 75 MG TAB GTB (09:08)
[2018-08-03] MEDS: SERTRALINE 50 MG TAB GTB (09:09)
[2018-08-03] MEDS: LISINOPRIL 5 MG TAB GTB (09:12)
[2018-08-03] MEDS: MUPIROCIN 2% 22 GM OINT TOP ×2 (09:13→21:10)
[2018-08-03] MEDS: DOCUSATE SODIUM 10 MG/ML (10ML CUP) GTB ×2 (09:13→21:10)
[2018-08-03] MEDS: HYDROCODONE/APAP (5/325) TAB GTB ×2 (19:00→23:45)
[2018-08-03] MEDS: ATORVASTATIN 40 MG TAB GTB (21:10)
[2018-08-04] MEDS: HYDROCODONE/APAP (5/325) TAB GTB ×3 (06:18→20:14)
[2018-08-04] MEDS: LANSOPRAZOLE 30 MG CAP PO (06:18)
[2018-08-04] MEDS: ASPIRIN 81 MG TAB GTB (08:54)
[2018-08-04] MEDS: POLYETHYLENE GLYCOL 17 GM PACKET GTB (08:54)
[2018-08-04] MEDS: SERTRALINE 50 MG TAB GTB (08:55)
[2018-08-04] MEDS: CLOPIDOGREL 75 MG TAB GTB (08:55)
[2018-08-04] MEDS: LISINOPRIL 20 MG TAB GTB (08:56)
[2018-08-04] MEDS: DOCUSATE SODIUM 10 MG/ML (10ML CUP) GTB ×2 (08:56→20:14)
[2018-08-04] MEDS: MUPIROCIN 2% 22 GM OINT TOP ×2 (08:56→20:15)
[2018-08-04] MEDS: ATORVASTATIN 40 MG TAB GTB (20:14)
[2018-08-05] MEDS: LANSOPRAZOLE 30 MG CAP PO (05:27)
[2018-08-05] MEDS: HYDROCODONE/APAP (5/325) TAB GTB ×2 (05:39→21:20)
[2018-08-05] MEDS: POLYETHYLENE GLYCOL 17 GM PACKET GTB (08:43)
[2018-08-05] MEDS: SERTRALINE 50 MG TAB GTB (08:43)
[2018-08-05] MEDS: DOCUSATE SODIUM 10 MG/ML (10ML CUP) GTB ×2 (08:43→21:20)
[2018-08-05] MEDS: ASPIRIN 81 MG TAB GTB (08:43)
[2018-08-05] MEDS: CLOPIDOGREL 75 MG TAB GTB (08:43)
[2018-08-05] MEDS: LISINOPRIL 20 MG TAB GTB (08:43)
[2018-08-05] MEDS: MUPIROCIN 2% 22 GM OINT TOP ×2 (08:44→21:20)
[2018-08-05] MEDS: ATORVASTATIN 40 MG TAB GTB (21:20)
[2018-08-06] MEDS: HYDROCODONE/APAP (5/325) TAB GTB ×2 (02:09→21:21)
[2018-08-06] MEDS: hydrALAzine 20 MG INJ IV (02:32)
[2018-08-06] MEDS: LANSOPRAZOLE 30 MG CAP PO (06:00)
[2018-08-06] MEDS: CLOPIDOGREL 75 MG TAB GTB (08:07)
[2018-08-06] MEDS: DOCUSATE SODIUM 10 MG/ML (10ML CUP) GTB ×2 (08:07→21:05)
[2018-08-06] MEDS: MUPIROCIN 2% 22 GM OINT TOP ×2 (08:08→21:08)
[2018-08-06] MEDS: POLYETHYLENE GLYCOL 17 GM PACKET GTB (08:08)
[2018-08-06] MEDS: SERTRALINE 50 MG TAB GTB (08:08)
[2018-08-06] MEDS: ASPIRIN 81 MG TAB GTB (08:08)
[2018-08-06] MEDS: LISINOPRIL 20 MG TAB GTB (08:09)
[2018-08-06] MEDS: ATORVASTATIN 40 MG TAB GTB (21:06)
[2018-08-07] MEDS: LORAZEPAM 2 MG INJ IV (01:12)
[2018-08-07] MEDS: HYDROCODONE/APAP (5/325) TAB GTB (02:37)
[2018-08-07] MEDS: LANSOPRAZOLE 30 MG CAP PO (05:30)
[2018-08-07] MEDS: DOCUSATE SODIUM 10 MG/ML (10ML CUP) GTB ×2 (08:50→21:35)
[2018-08-07] MEDS: SERTRALINE 50 MG TAB GTB (08:50)
[2018-08-07] MEDS: POLYETHYLENE GLYCOL 17 GM PACKET GTB (08:50)
[2018-08-07] MEDS: CLOPIDOGREL 75 MG TAB GTB (08:50)
[2018-08-07] MEDS: ASPIRIN 81 MG TAB GTB (08:51)
[2018-08-07] MEDS: LISINOPRIL 20 MG TAB GTB (08:51)
[2018-08-07] MEDS: MUPIROCIN 2% 22 GM OINT TOP ×2 (08:52→21:35)
[2018-08-07] MEDS: ATORVASTATIN 40 MG TAB GTB (21:35)
[2018-08-08] MEDS: LANSOPRAZOLE 30 MG CAP PO (05:33)
[2018-08-08] MEDS: hydrALAzine 20 MG INJ IV (08:29)
[2018-08-08] MEDS: CLOPIDOGREL 75 MG TAB GTB (09:15)
[2018-08-08] MEDS: POLYETHYLENE GLYCOL 17 GM PACKET GTB (09:15)
[2018-08-08] MEDS: DOCUSATE SODIUM 10 MG/ML (10ML CUP) GTB ×2 (09:15→20:44)
[2018-08-08] MEDS: ASPIRIN 81 MG TAB GTB (09:16)
[2018-08-08] MEDS: SERTRALINE 50 MG TAB GTB (09:16)
[2018-08-08] MEDS: LISINOPRIL 20 MG TAB GTB (09:20)
[2018-08-08] MEDS: MUPIROCIN 2% 22 GM OINT TOP ×2 (09:21→20:44)
[2018-08-08] MEDS: HYDROCODONE/APAP (5/325) TAB GTB (09:24)
[2018-08-08] MEDS: ATORVASTATIN 40 MG TAB GTB (20:44)
[2018-08-08] MEDS: HEPARIN 5,000 UNIT/1 ML VIAL SC (20:46)
[2018-08-09] MEDS: LANSOPRAZOLE 30 MG CAP PO (05:46)
[2018-08-09] MEDS: DOCUSATE SODIUM 10 MG/ML (10ML CUP) GTB ×2 (08:47→20:19)
[2018-08-09] MEDS: SERTRALINE 50 MG TAB GTB (08:48)
[2018-08-09] MEDS: CLOPIDOGREL 75 MG TAB GTB (08:48)
[2018-08-09] MEDS: ASPIRIN 81 MG TAB GTB (08:49)
[2018-08-09] MEDS: POLYETHYLENE GLYCOL 17 GM PACKET GTB (08:50)
[2018-08-09] MEDS: LISINOPRIL 20 MG TAB GTB (08:50)
[2018-08-09] MEDS: MUPIROCIN 2% 22 GM OINT TOP ×2 (08:52→20:53)
[2018-08-09] MEDS: HEPARIN 5,000 UNIT/1 ML VIAL SC ×2 (08:52→20:30)
[2018-08-09] MEDS: HYDROCODONE/APAP (5/325) TAB GTB (20:18)
[2018-08-09] MEDS: ATORVASTATIN 40 MG TAB GTB (20:19)
[2018-08-09] MEDS: LORAZEPAM 2 MG INJ IV (23:31)
[2018-08-10] MEDS: LANSOPRAZOLE 30 MG CAP PO (06:34)
[2018-08-10] MEDS: ASPIRIN 81 MG TAB GTB (09:50)
[2018-08-10] MEDS: LISINOPRIL 20 MG TAB GTB (09:50)
[2018-08-10] MEDS: SERTRALINE 50 MG TAB GTB (09:51)
[2018-08-10] MEDS: CLOPIDOGREL 75 MG TAB GTB (09:51)
[2018-08-10] MEDS: DOCUSATE SODIUM 10 MG/ML (10ML CUP) GTB (09:51)
[2018-08-10] MEDS: POLYETHYLENE GLYCOL 17 GM PACKET GTB (09:52)
[2018-08-10] MEDS: HEPARIN 5,000 UNIT/1 ML VIAL SC (09:52)
[2018-08-10] MEDS: MUPIROCIN 2% 22 GM OINT TOP (10:01)
[2018-08-10] MEDS: HYDROCODONE/APAP (5/325) TAB GTB (12:10)
== END 2018-08-10 19:25 | DRG 178 ==
LOC: PP2 07-19 07:15 → E/R 18:19 → 2NE 20:02
PROC: 0DH63UZ Insertion of Feeding Device into Stomach, Percutaneous Approach (ICD-10-PCS; principal; 2018-08-01)
DX: J69.0 Pneumonitis due to inhalation of food and vomit (principal); I69.354 Hemiplegia and hemiparesis following cerebral infarction affecting left non-dominant side; K92.0 Hematemesis; R78.81 Bacteremia; G93.40 Encephalopathy, unspecified; K56.7 Ileus, unspecified; E87.6 Hypokalemia; I69.991 Dysphagia following unspecified cerebrovascular disease; R13.19 Other dysphagia; E78.5 Hyperlipidemia, unspecified; F01.50 Vascular dementia, unspecified severity, without behavioral disturbance, psychotic disturbance, mood disturbance, and anxiety; R10.84 Generalized abdominal pain; R25.2 Cramp and spasm; Z22.322 Carrier or suspected carrier of Methicillin resistant Staphylococcus aureus; B95.7 Other staphylococcus as the cause of diseases classified elsewhere; R13.12 Dysphagia, oropharyngeal phase; Z93.1 Gastrostomy status
CPT/HCPCS: 36415; 71045; 74018; 74176; 74230; 80048; 80053; 80061; 80202; 82270; 82728; 83036; 83540; 83690; 83735; 84100; 84132; 84443; 84484; 85025; 85610; 87040-91; 87081; 92526; 92610; 92611; 93005; 97110; 97161; 97530; 99285-25

== ENCOUNTER 2018-12-03 16:52 | Inpatient (IN) | payer MEDICARE, OTHER, MEDICAID ==
[2018-12-03 17:46] LABS: WHITE BLOOD COUNT 27.6 10^3/ul (4.8-10.8)
[2018-12-03 17:46] LABS: ABNORMAL IP MESSAGE 1; HEMATOCRIT 62.8 % (42.0-52.0); HEMOGLOBIN 20.8 g/dl (14.0-18.0); MEAN CORPUSCULAR HEMOGLOBIN 30.2 pg (29.0-33.0); MEAN CORPUSCULAR HGB CONC 33.1 g/dl (32.0-37.0); MEAN CORPUSCULAR VOLUME 91.1 fl (82.0-101.0); MEAN PLATELET VOLUME 11.1 fl (7.4-10.4); PLATELET COUNT 446 10^3/UL (140-415); POSITIVE DIFF @See below; RED BLOOD COUNT 6.89 10^6/ul (4.70-6.10); RED CELL DISTRIBUTION WIDTH 18.2 % (11.5-14.5)
[2018-12-03 17:53] LABS: ADD MAN DIFF? YES
[2018-12-03 18:05] LABS: PROTIME 12.3 Sec (11.9-14.9)
[2018-12-03 18:06] LABS: PARTIAL THROMBOPLASTIN TIME 24.8 Sec (23.0-35.0)
[2018-12-03] MEDS: SOD CHLORIDE 0.9% 1,000 ML IV ×3 (18:15→22:36)
[2018-12-03] MEDS: CEFEPIME 2GM/50 ML (PMX) 50 ML IVPB (18:15)
[2018-12-03] MEDS: VANCOMYCIN 1 GM (PMX) 250 ML IVPB (18:37)
[2018-12-03 18:38] LABS: ALANINE AMINOTRANSFERASE 29 IU/L (13-69); ALKALINE PHOSPHATASE 90 IU/L (42-121); ANION GAP 13 (5-13); ASPARTATE AMINO TRANSFERASE 22 IU/L (15-46); BILIRUBIN,INDIRECT 0.6 mg/dl (0-1.1); BILIRUBIN,TOTAL 0.6 mg/dl (0.2-1.3); BLOOD UREA NITROGEN 50 mg/dl (7-20); CALCIUM 9.2 mg/dl (8.4-10.2); CARBON DIOXIDE 16 mmol/L (21-31); CHLORIDE 111 mmol/L (97-110); CREATININE 1.17 mg/dl (0.61-1.24); Estimated GFR > 60 mL/min (>60); GLUCOSE 180 mg/dl (70-220); POTASSIUM 4.5 mmol/L (3.5-5.1); SODIUM 140 mmol/L (135-144)
[2018-12-03 18:47] LABS: ANISOCYTOSIS 2+ (0-0); BAND NEUTROPHILS #M 3.3 10^3/ul (0.0-0.6); BAND NEUTROPHILS % (M) 12 % (0-4); BURR CELLS 2+ (0-0); LYMPHOCYTES #M 0.5 10^3/ul (0.8-2.9); LYMPHOCYTES % (M) 2 % (15-51); MICROCYTOSIS 1+ (0-0); MONOCYTE #M 1.9 10^3/ul (0.3-0.9); MONOCYTES % (M) 7 % (0-11); OVALOCYTES 1+ (0-0); PLATELET ESTIMATE NORMAL; POIKILOCYTOSIS 3+ (0-0); POLYCHROMASIA 1+ (0-0); REACTIVE LYMPHOCYTES #M 0.8 10^3/ul (0.0-0.0); REACTIVE LYMPHOCYTES% (M) 3 % (0-0); SEG NEUT #M 21.9 10^3/ul (1.6-7.5); SEGMENTED NEUTROPHILS (M) % 76 % (39-77); SMUDGE%M 3 % (0-0)
[2018-12-03 18:49] LABS: ETHANOL < 10.0 mg/dl (0-0); TROPONIN-I 0.041 ng/ml (0.000-0.120)
[2018-12-03] MEDS ORDERED: ONDANSETRON 4 MG INJ IV ×2 (19:00→19:30)
[2018-12-03] MEDS ORDERED: ACETAMINOPHEN 325 MG TAB PO ×2 (19:00→19:30)
[2018-12-03 19:10] LABS: ADD UMIC YES; UR ASCORBIC ACID 40 mg/dL (NEGATIVE); UR BILIRUBIN (Dip) NEGATIVE (NEGATIVE); UR BLOOD (Dip) NEGATIVE (NEGATIVE); UR CLARITY CLEAR (CLEAR); UR COLOR YELLOW (YELLOW); UR GLUCOSE (Dip) NEGATIVE (NEGATIVE); UR KETONES (Dip) TRACE mg/dL (NEGATIVE); UR LEUKOCYTE ESTERASE (Dip) NEGATIVE Leu/ul (NEGATIVE); UR MUCUS MANY /HPF (NONE SEEN); UR NITRITE (Dip) NEGATIVE (NEGATIVE); UR RBC 6 /HPF (0-5); UR SPECIFIC GRAVITY (Dip) 1.029 (1.003-1.030); UR TOTAL PROTEIN (Dip) 1+ mg/dl (NEGATIVE); UR UROBILINOGEN (Dip) NEGATIVE (NEGATIVE); UR WBC 2 /HPF (0-5)
[2018-12-03 19:12] LABS: AMPHETAMINE/METHAMPHETAMINE Negative (NEGATIVE); BARBITURATES Negative (NEGATIVE); BENZODIAZEPINES Negative (NEGATIVE); CANNABINOIDS Negative (NEGATIVE); COCAINE Negative (NEGATIVE)
[2018-12-03 19:13] LABS: OPIATES Positive (NEGATIVE)
[2018-12-03] MEDS ORDERED: NITROGLYCERIN (SL) 0.4 MG TAB SL (19:30)
[2018-12-03] MEDS ORDERED: ALBUTEROL/IPRATROPIUM (NEB) 3 ML AMP HHN (19:30)
[2018-12-03] MEDS ORDERED: LORAZEPAM 2 MG INJ IV (19:30)
[2018-12-03] MEDS ORDERED: NACL 0.9% 3 ML SYG IV (19:30)
[2018-12-03] MEDS ORDERED: MAGNESIUM HYDROXIDE 30ML CUP PO (19:30)
[2018-12-03] MEDS ORDERED: GUAIFENESIN 20 MG/ML 5ML CUP PO (19:30)
[2018-12-03] MEDS ORDERED: DOCUSATE SODIUM 100 MG CAP PO (19:30)
[2018-12-03] MEDS ORDERED: VANCOMYCIN IV PER PHARMACY XX (19:30)
[2018-12-03] MEDS: SOD CHLORIDE 0.45% 1,000 ML IV (19:45)
[2018-12-03 20:07] LABS: FREE T4 (FREE THYROXINE) 0.98 ng/dl (0.78-2.44)
[2018-12-03 20:52] LABS: LACTIC ACID 2.7 mmol/L (0.5-2.0)
[2018-12-03] MEDS: HEPARIN 5,000 UNIT/0.5 ML VIAL SC (21:08)
[2018-12-03] MEDS: VANCOMYCIN 750 MG (PMX) 250 ML IVPB (21:15)
[2018-12-03 22:30] LABS: LACTIC ACID 2.2 mmol/L (0.5-2.0)
[2018-12-04 00:28] LABS: LACTIC ACID 2.2 mmol/L (0.5-2.0)
[2018-12-04 03:33] LABS: ADD MAN DIFF? NO
[2018-12-04 03:51] LABS: LACTIC ACID 1.7 mmol/L (0.5-2.0)
[2018-12-04 03:52] LABS: CHOLESTEROL 106 mg/dl (100-200)
[2018-12-04 03:52] LABS: CHOL/HDL RATIO 3.1 RATIO; HDL CHOLESTEROL 34 mg/dl (30-78); LDL CHOLESTEROL,CALCULATED 51 mg/dl; TRIGLYCERIDES 107 mg/dl (0-149)
[2018-12-04 03:53] LABS: HEMOGLOBIN A1C 5.3 % (0-5.9)
[2018-12-04 03:54] LABS: ANION GAP 4 (5-13); BLOOD UREA NITROGEN 37 mg/dl (7-20); CALCIUM 8.5 mg/dl (8.4-10.2); CARBON DIOXIDE 20 mmol/L (21-31); CHLORIDE 117 mmol/L (97-110); CREATININE 0.62 mg/dl (0.61-1.24); Estimated GFR > 60 mL/min (>60); GLUCOSE 124 mg/dl (70-220); MAGNESIUM 2.1 mg/dl (1.7-2.5); PHOSPHORUS 3.2 mg/dl (2.5-4.9); POTASSIUM 4.3 mmol/L (3.5-5.1); SODIUM 141 mmol/L (135-144)
[2018-12-04 04:01] LABS: WHITE BLOOD COUNT 22.7 10^3/ul (4.8-10.8)
[2018-12-04 04:01] LABS: BASOPHIL # 0.1 10^3/ul (0.0-0.1); BASOPHILS % 0.2 % (0.0-2.0); HEMATOCRIT 50.7 % (42.0-52.0); LYMPHOCYTES # 2.1 10^3/ul (0.8-2.9); LYMPHOCYTES % 9.4 % (15.0-51.0); MEAN CORPUSCULAR HEMOGLOBIN 30.4 pg (29.0-33.0); MEAN CORPUSCULAR HGB CONC 33.5 g/dl (32.0-37.0); MEAN CORPUSCULAR VOLUME 90.5 fl (82.0-101.0); MEAN PLATELET VOLUME 10.6 fl (7.4-10.4); MONOCYTE # 1.4 10^3/ul (0.3-0.9); MONOCYTES % 6.3 % (0.0-11.0); NEUTROPHIL # 18.6 10^3/ul (1.6-7.5); NEUTROPHILS % 82.1 % (39.0-77.0); PLATELET COUNT 311 10^3/UL (140-415); RED CELL DISTRIBUTION WIDTH 15.7 % (11.5-14.5)
[2018-12-04] MEDS: morphine 2 MG INJ IV (05:46)
[2018-12-04] MEDS: CEFEPIME 2GM/50 ML (PMX) 50 ML IVPB ×3 (05:51→21:33)
[2018-12-04 08:29] LABS: LACTIC ACID 2.3 mmol/L (0.5-2.0)
[2018-12-04] MEDS: LANSOPRAZOLE (SOLTAB) 30 MG TAB GTB (08:37)
[2018-12-04] MEDS: SOD CHLORIDE 0.45% 1,000 ML IV (08:48)
[2018-12-04] MEDS: VANCOMYCIN 1.25 GM/NS 250 ML 250 ML IVPB ×2 (08:48→21:32)
[2018-12-04] MEDS ORDERED: NON-FORMULARY/PATIENT OWN MED (Cranberry Extract (Cranberry) 425 MG) GTB (09:00)
[2018-12-04] MEDS: SOD CHLORIDE 0.9% 680 ML IV (10:13)
[2018-12-04] MEDS: DEXTROSE 5%-0.45% NACL 1,000 ML IV ×2 (10:14→21:33)
[2018-12-04] MEDS: ATORVASTATIN 40 MG TAB GTB ×2 (10:14→21:33)
[2018-12-04] MEDS: HEPARIN 5,000 UNIT/0.5 ML VIAL SC ×2 (10:26→21:00)
[2018-12-04] MEDS: MULTIVITAMINS 30 ML CUP GTB (10:27)
[2018-12-04] MEDS: HYDROCODONE/APAP (5/325) TAB PO ×2 (10:27→17:13)
[2018-12-04] MEDS: MAGNESIUM HYDROXIDE 30ML CUP GTB (10:27)
[2018-12-04] MEDS: CLOPIDOGREL 75 MG TAB GTB (10:27)
[2018-12-04] MEDS: IOHEXOL 14.3 MG(I)/ML (ADULT) BTL PO (11:22)
[2018-12-04 12:57] LABS: LACTIC ACID 1.3 mmol/L (0.5-2.0)
[2018-12-05] MEDS ORDERED: POLYETHYLENE GLYCOL 17 GM PACKET GTB (01:00)
[2018-12-05] MEDS: LANSOPRAZOLE (SOLTAB) 30 MG TAB GTB (05:28)
[2018-12-05] MEDS: CEFEPIME 2GM/50 ML (PMX) 50 ML IVPB ×3 (05:28→21:00)
[2018-12-05] MEDS: DEXTROSE 5%-0.45% NACL 1,000 ML IV (05:29)
[2018-12-05 05:41] LABS: ADD MAN DIFF? NO
[2018-12-05 05:47] LABS: WHITE BLOOD COUNT 13.9 10^3/ul (4.8-10.8)
[2018-12-05 05:47] LABS: BASOPHILS % 0.3 % (0.0-2.0); EOSINOPHILS # 0.1 10^3/ul (0.0-0.5); EOSINOPHILS % 0.4 % (0.0-7.0); HEMATOCRIT 40.4 % (42.0-52.0); HEMOGLOBIN 13.2 g/dl (14.0-18.0); LYMPHOCYTES # 2.9 10^3/ul (0.8-2.9); LYMPHOCYTES % 20.8 % (15.0-51.0); MEAN CORPUSCULAR HEMOGLOBIN 30.7 pg (29.0-33.0); MEAN CORPUSCULAR HGB CONC 32.7 g/dl (32.0-37.0); MEAN PLATELET VOLUME 10.4 fl (7.4-10.4); MONOCYTE # 1.2 10^3/ul (0.3-0.9); MONOCYTES % 8.6 % (0.0-11.0); NEUTROPHIL # 9.7 10^3/ul (1.6-7.5); NEUTROPHILS % 69.3 % (39.0-77.0); PLATELET COUNT 208 10^3/UL (140-415); RED CELL DISTRIBUTION WIDTH 15.3 % (11.5-14.5)
[2018-12-05 06:21] LABS: UR CLARITY SLIGHTLY CLOUDY (CLEAR); UR COLOR YELLOW (YELLOW); UR SPECIFIC GRAVITY (Dip) 1.017 (1.003-1.030)
[2018-12-05 06:22] LABS: ADD UMIC YES; UR ASCORBIC ACID NEGATIVE (NEGATIVE); UR BACTERIA FEW /HPF (NONE SEEN); UR BILIRUBIN (Dip) NEGATIVE (NEGATIVE); UR BLOOD (Dip) 3+ mg/dL (NEGATIVE); UR GLUCOSE (Dip) NEGATIVE (NEGATIVE); UR KETONES (Dip) NEGATIVE (NEGATIVE); UR LEUKOCYTE ESTERASE (Dip) 2+ Leu/ul (NEGATIVE); UR MUCUS FEW /HPF (NONE SEEN); UR NITRITE (Dip) NEGATIVE (NEGATIVE); UR RBC > 182 /HPF (0-5); UR TOTAL PROTEIN (Dip) NEGATIVE (NEGATIVE); UR UROBILINOGEN (Dip) NEGATIVE (NEGATIVE); UR WBC 22 /HPF (0-5)
[2018-12-05 06:43] LABS: LACTIC ACID 1.2 mmol/L (0.5-2.0)
[2018-12-05 06:46] LABS: ANION GAP 1 (5-13); BLOOD UREA NITROGEN 20 mg/dl (7-20); CALCIUM 8.4 mg/dl (8.4-10.2); CARBON DIOXIDE 29 mmol/L (21-31); CHLORIDE 108 mmol/L (97-110); CREATININE 0.55 mg/dl (0.61-1.24); Estimated GFR > 60 mL/min (>60); GLUCOSE 94 mg/dl (70-220); SODIUM 138 mmol/L (135-144)
[2018-12-05] MEDS: VANCOMYCIN 1.25 GM/NS 250 ML 250 ML IVPB ×2 (08:07→20:59)
[2018-12-05] MEDS: DOCUSATE SODIUM 10 MG/ML (10ML CUP) GTB ×2 (10:31→20:59)
[2018-12-05] MEDS: MAGNESIUM HYDROXIDE 30ML CUP GTB (10:31)
[2018-12-05] MEDS: CLOPIDOGREL 75 MG TAB GTB (10:31)
[2018-12-05] MEDS: MULTIVITAMINS 30 ML CUP GTB (10:31)
[2018-12-05] MEDS: HEPARIN 5,000 UNIT/1 ML VIAL SC ×2 (10:34→21:01)
[2018-12-05] MEDS: POLYETHYLENE GLYCOL 17 GM PACKET GTB (17:02)
[2018-12-05 19:40] LABS: VANCOMYCIN,TROUGH 13.8 ug/ml (10.0-20.0)
[2018-12-05] MEDS: ATORVASTATIN 40 MG TAB GTB (20:59)
[2018-12-05] MEDS: SOD CHLORIDE 0.9% 1,000 ML IV (21:02)
[2018-12-05] MEDS: HYDROCODONE/APAP (5/325) TAB PO (21:02)
[2018-12-06 05:06] LABS: ADD MAN DIFF? NO
[2018-12-06 05:10] LABS: WHITE BLOOD COUNT 9.5 10^3/ul (4.8-10.8)
[2018-12-06 05:10] LABS: BASOPHILS % 0.3 % (0.0-2.0); EOSINOPHILS # 0.2 10^3/ul (0.0-0.5); EOSINOPHILS % 1.8 % (0.0-7.0); HEMATOCRIT 42.1 % (42.0-52.0); LYMPHOCYTES # 3.2 10^3/ul (0.8-2.9); LYMPHOCYTES % 33.8 % (15.0-51.0); MEAN CORPUSCULAR HEMOGLOBIN 30.1 pg (29.0-33.0); MEAN CORPUSCULAR HGB CONC 33.3 g/dl (32.0-37.0); MEAN CORPUSCULAR VOLUME 90.5 fl (82.0-101.0); MEAN PLATELET VOLUME 10.8 fl (7.4-10.4); MONOCYTE # 0.9 10^3/ul (0.3-0.9); MONOCYTES % 9.6 % (0.0-11.0); NEUTROPHIL # 5.1 10^3/ul (1.6-7.5); NEUTROPHILS % 53.9 % (39.0-77.0); PLATELET COUNT 211 10^3/UL (140-415); RED BLOOD COUNT 4.65 10^6/ul (4.70-6.10); RED CELL DISTRIBUTION WIDTH 14.6 % (11.5-14.5)
[2018-12-06] MEDS: CEFEPIME 2GM/50 ML (PMX) 50 ML IVPB ×2 (05:27→14:20)
[2018-12-06] MEDS: LANSOPRAZOLE (SOLTAB) 30 MG TAB GTB (05:27)
[2018-12-06] MEDS: HYDROCODONE/APAP (5/325) TAB PO ×2 (05:28→11:31)
[2018-12-06 05:33] LABS: ANION GAP 4 (5-13); BLOOD UREA NITROGEN 10 mg/dl (7-20); CALCIUM 8.6 mg/dl (8.4-10.2); CARBON DIOXIDE 28 mmol/L (21-31); CHLORIDE 104 mmol/L (97-110); CREATININE 0.43 mg/dl (0.61-1.24); Estimated GFR > 60 mL/min (>60); GLUCOSE 85 mg/dl (70-220); POTASSIUM 3.8 mmol/L (3.5-5.1); SODIUM 136 mmol/L (135-144)
[2018-12-06] MEDS: VANCOMYCIN 1.25 GM/NS 250 ML 250 ML IVPB (08:53)
[2018-12-06] MEDS: HEPARIN 5,000 UNIT/1 ML VIAL SC (08:53)
[2018-12-06] MEDS: MULTIVITAMINS 30 ML CUP GTB (08:53)
[2018-12-06] MEDS: MAGNESIUM HYDROXIDE 30ML CUP GTB (08:54)
[2018-12-06] MEDS: POLYETHYLENE GLYCOL 17 GM PACKET GTB (08:54)
[2018-12-06] MEDS: DOCUSATE SODIUM 10 MG/ML (10ML CUP) GTB (08:54)
[2018-12-06] MEDS: CLOPIDOGREL 75 MG TAB GTB (08:54)
[2018-12-06] MEDS: hydrALAzine 20 MG INJ IV (16:27)
== END 2018-12-06 16:50 | DRG 871 ==
LOC: E/R 16:52 → PP2 18:58
PROVIDERS: Internal Medicine
DX: A41.9 Sepsis, unspecified organism (principal); J18.9 Pneumonia, unspecified organism; E87.2 Acidosis; I69.354 Hemiplegia and hemiparesis following cerebral infarction affecting left non-dominant side; G93.49 Other encephalopathy; R65.20 Severe sepsis without septic shock; D75.1 Secondary polycythemia; F01.50 Vascular dementia, unspecified severity, without behavioral disturbance, psychotic disturbance, mood disturbance, and anxiety; E86.0 Dehydration; I10 Essential (primary) hypertension; R13.19 Other dysphagia; Z93.1 Gastrostomy status; I69.991 Dysphagia following unspecified cerebrovascular disease; E78.5 Hyperlipidemia, unspecified
CPT/HCPCS: 36415; 70450; 71045; 74176; 80048; 80053; 80061; 80202; 80307; 81001; 82962; 83036; 83605; 83735; 84100; 84439; 84443; 84484; 85025; 85610; 85730; 87040-91; 87081; 87086; 92610; 93005; 93306; 96374; 96375; 97162; 97166; 99285-25